=== PATIENT | male | born 1950 | race Hispanic/Latino ===

== ENCOUNTER → 2021-04-13 | Outpatient (CLI) | payer OTHER | END | disposition home or self-care (01) | LOC: RAH 09:23 | PROVIDERS: ATTEND Internal Medicine | DX: I74.3 Embolism and thrombosis of arteries of the lower extremities (principal); I77.1 Stricture of artery; I70.201 Unspecified atherosclerosis of native arteries of extremities, right leg; M79.89 Other specified soft tissue disorders; M79.604 Pain in right leg | CPT/HCPCS: 93926; 93971 ==